=== PATIENT | male | born 1975 | race Caucasian/White ===

== ENCOUNTER 2021-10-29 09:38 | Emergency (ER) | payer SELFPAY ==
[2021-10-29 09:38] VITALS: BP 132/93; PULSE 66; RESP 18; TEMP 36.5; O2SAT 97
--- NOTE | 2021-10-29 10:00 | RT.EKG_ITS ---
APPROVED REPORT Exam: Resting ECG Reason for Exam: palpitations Patient Location: E HR:58 bpm ECG Measurements Heart Rate 58 AXIS NE 143 P 67 QRSd 93 QRS 78 QT 399 T 69 QTc 391 Conclusion Sinus bradycardia...rate< 60 J pt elev, probable normal early repol pattern.
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
[2021-10-29 10:31] LABS: Abs Immature Grans 0.04 10^3/uL (0.0-0.06); Absolute Basophil Count 0.07 10^3/uL (0.0-0.2); Absolute Eosinophil Count 0.25 10^3/uL (0.0-0.7); Absolute Lymphocyte Count 2.32 10^3/uL (1.2-3.4); Absolute Monocyte Count 0.89 10^3/uL (0.1-0.8); Basophils % 0.6; Eosinophils % 2.1; HGB 14.9 g/dL (13.5-17.5); Immature Grans % 0.3; Lymphocytes % 19.2; MCH 30.8 pg (27.0-33.0); MCHC 33.1 % (32.0-36.0); MCV 93.2 fL (80-95); MPV 11.7 fL (8.0-11.0); Monocytes % 7.4; Neutrophils % 70.4; Nucleated RBC 0 %; Platelet Count 274 10^3/uL (130-400); RBC 4.83 10^6/uL (4.36-5.78); RDW 13.2 % (11.8-14.1); RDW-SD 45.2 fL; WBC 12.08 10^3/uL (4.4-10.8)
[2021-10-29] MEDS: LORazepam 0.5 MG TAB PO (10:31)
[2021-10-29 10:53] LABS: ALT 25 U/L (16-63); AST 15 U/L (15-37); Albumin 4.3 g/dL (3.4-5.0); Alkaline Phosphatase 87 U/L (46-116); Anion Gap 11.5 mmol/L (3-11); BUN 13 mg/dL (7-18); Bilirubin, Total 0.3 mg/dL (0.2-1.0); CO2 25.5 mmol/L (21.0-32.0); CREATININE 0.8 mg/dL (0.70-1.30); Chloride 106 mmol/L (98-107); Glucose 105 mg/dL (74-106); Magnesium 1.9 mg/dL (1.8-2.4); Sodium 143 mmol/L (136-145); TSH (W/Ref FT4) 1.14 uIU/mL (0.36-3.74); Total Protein 7.8 g/dL (6.4-8.2); Troponin I < 50 ng/L (<or=60)
--- NOTE | 2021-10-29 10:59 | NUR.NOTE ---
Dr. Meyer evaluated the patient in the ER on 10/29/21 and request the patient get established with a PCP. The patient states that [facility] may be best option for his location. I have faxed the request to [facility] and added the request to the care management referral list. FRANCINE
== END 2021-10-29 11:27 | disposition home or self-care (01) ==
PROVIDERS: Emergency Provider Emergency Medicine; PCP Nurse Practitioner
DX: R00.2 Palpitations (principal); F41.9 Anxiety disorder, unspecified; Z63.0 Problems in relationship with spouse or partner
CPT/HCPCS: 36415; 80053; 93005; 99283; 83735; 84443; 84484; 85025; 93010